=== PATIENT | female | born 1965 | race Caucasian/White ===

== ENCOUNTER 2017-11-10 19:57 | Emergency (ER) | payer OTHER, SELFPAY ==
[2017-11-10 19:59] VITALS: BP 122/74; PULSE 89; RESP 20; TEMP 36.6; O2SAT 100; BMI 29.1
--- NOTE | 2017-11-10 20:30 | RAD_ITS ---
STUDY: X-RAY - LEFT FOOT CLINICAL: Female, 51 years old. Pain TECHNIQUE: 3 view(s) of the foot. COMPARISON: None. FINDINGS: Normal talus, calcaneus, and tarsal bones. Normal visualized subtalar, talonavicular, calcaneocuboid, tarsal and tarsometatarsal articulations. Normal metatarsi. Normal metatarsophalangeal joint of the great toe. Normal tibial and fibular sesamoid bones. Normal interphalangeal joint of the great toe. Normal phalanges of the great toe. Normal second through fifth metatarsophalangeal joints. Normal interphalangeal joints and phalanges of the lesser toes. The soft tissue structures are unremarkable. RAD/Foot min 3 Views IMPRESSION: Normal x-ray examination of the foot. Electronically Signed: Haja Frazier DO at 20:53 EDT Tel [phone], Service support ,
--- NOTE | 2017-11-10 21:10 | ED.VISSUMM ---
- ER Visit Summary Date of Service: 11/10/17 Chief Complaint: Left ankle injury 4 weeks ago History of Present Illness: The patient is a 51 F who injured her left ankle 4 weeks ago. She presents because of pain with dorsiflexion and pain posterior lateral malleolus. She denies any recent injury. She was concerned because she had tingling pain in the proximal medial left thigh. After speaking with her mother she presented to the emergency department. She denies chest pain or shortness of breath. Denies difficulty breathing. She denies any GI symptoms. She denies any recurrent injury. She denies symptoms of claudication. She has no history of PE or DVT or any risk factors. Physical Examination: Vital signs are normal. HEENT is grossly unremarkable. Heart is regular. There is no respiratory distress. Examination of the left lower extremity was no swelling, discoloration, asymmetry, leg vein distention, palpable cords since on the diffusion deep venous system. She has minimal discomfort posterior lateral malleolus. There is no effusion of the ankle. There is no pain the patient base of the fifth metatarsal. There is no laxity with drawer testing. PT DP pulses are palpable. Test Results: Well score is -2. Three-view x-ray of the ankle was obtained per nurse protocol and interpreted by me as negative Emergency Department Course and Treatment: X-ray per nurse protocol Treatment Plan: Appropriate home-going instructions Disposition: Discharge to home Impression: Left ankle sprain, stable This note was generated with [employer] dictation software. It may contain incorrect words, spelling, and punctuation that were not noted in review of the chart prior to signing ED Disposition - Plan for ED Patient: Disposition: Home or Assisted Living Chief Complaint: Lower Extremity Injury Instructions: ED Sprain Ankle W X Ray Referrals: Merly Griffin PA-C [Primary Care Provider] - As Needed
[2017-11-10 21:14] VITALS: RESP 18
== END 2017-11-10 21:15 | disposition home or self-care (01) ==
PROVIDERS: Emergency Provider Emergency Medicine; Family Provider Family Medicine; PCP Family Medicine
DX: S93.402A Sprain of unspecified ligament of left ankle, initial encounter (principal); X58.XXXA Exposure to other specified factors, initial encounter; Y93.89 Activity, other specified; Y92.9 Unspecified place or not applicable; Y99.9 Unspecified external cause status; F32.9 Major depressive disorder, single episode, unspecified; Z72.0 Tobacco use
CPT/HCPCS: 73630; 99282

== ENCOUNTER → 2019-03-02 11:32 | Outpatient (CLI) | payer OTHER, SELFPAY ==
--- NOTE | 2019-03-02 11:33 | RAD_ITS ---
STUDY: X-RAY - RIGHT ELBOW REASON FOR EXAM: Female, 53 years old. Pain TECHNIQUE: 3 view(s) of the elbow. COMPARISON: None. FINDINGS: Normal visualized humerus, radius and ulna. Normal radiocapitellar and ulnotrochlear articulations. The soft tissue structures are unremarkable. RAD/Elbow min 3 Views IMPRESSION: Normal x-ray examination of the elbow. Electronically Signed: Kumar Ramirez MD at 20:15 EDT , Service support ,
== END ==
PROVIDERS: Family Provider Family Medicine; PCP Family Medicine; Referring Provider Physician Assistant; Visit Provider Physician Assistant
DX: M25.521 Pain in right elbow (principal)
CPT/HCPCS: 73080

== ENCOUNTER → 2019-03-25 08:47 | Outpatient (CLI) | payer OTHER, SELFPAY ==
[2019-03-02 13:29] VITALS: BMI 29.1
--- NOTE | 2019-03-25 08:49 | MRI_ITS ---
HISTORY:IMPINGEMENT RIGHT ELBOW, PAIN ULNAR SIDE, UNABLE TO FULLY EXTEND ELBOW,NKI MRI EXAMINATION OF THE Right ELBOW COMPARISON: Radiographs of the right elbow obtained on March 02, 2019 TECHNIQUE:Axial T1, T2, coronal T1 STIR proton-density fat-suppressed sagittal T2 and coronal in phase and out of phase proton density images # of images including paperwork:189 FINDINGS: BONES, OSTEOCHONDRAL SURFACES, AND ELBOW JOINT: No fracture,contusion, bone marrow edema, or osseous neoplasm. Ostochondral surfaces are unremarkable. No osteonecrosis or osteochondral defect. Small joint effusion . No loose body. TENDONS AND MUSCLES: The distal insertion of the biceps tendon is unremarkable without tendonopathy or rupture. The distal insertion of the brachialis tendon is unremarkable without tendonopathy or rupture. The distal insertion of the triceps tendon is unremarkable without tendonopathy or rupture. The origins of the flexor tendons of the forearm from the medial epicondyle are demonstrate slightly increased signal suggesting minimal intrasubstance tearing and tendinosis. The origins or the extensor tendons from the lateral humeral epicondyle are unremarkable without tenopathy or tear. LIGAMENTS: The radial collateral ligament is unremarkable. The ulnar collateral ligament is unremarkable. The lateral ulnar collateral ligament is unremarkable. NERVES: The ulnar nerve is appears mildly thickened. It also demonstrates slight increased signal on coronal image 17 series 6. These findings are suspect for neuritis. The courses of the median and radial nerves are unremarkable. IMPRESSION: Slightly thickened ulnar nerve was slight increased signal suspect for neuritis Minimal intrasubstance tear/tendinosis involving the origin of the common flexor tendons on the medial epicondyle. Small joint effusion at 2055 Reported and signed by: Kimberlyn Juan DO Electronically Signed: Kimberlyn Juan DO at 20:54 EDT Tel , Service support , MRI/Upper Ext Joint Only(Routine)
== END ==
PROVIDERS: Family Provider Family Medicine; PCP Family Medicine; Referring Provider Physician Assistant; Visit Provider Physician Assistant
DX: M25.821 Other specified joint disorders, right elbow (principal); M25.521 Pain in right elbow
CPT/HCPCS: 73221

== ENCOUNTER → 2019-07-04 15:12 | Outpatient (CLI) | payer OTHER, SELFPAY ==
[2019-04-20 10:01] VITALS: BMI 29.1
--- NOTE | 2019-07-04 | EGD_PTH ---
PATIENT: REBECCA WEISS LOC: [facility] U#:[id number] AGE/SX: 59/F ROOM: RE07/04/[address]: Dr. Grabiel Winchester MD : 1965 BED: DIS: SPEC #: [id number] RECD: 07/04/19 14:59 STATUS: TONNY RERoby #: [id number] TOD: 07/04/19 00:[address]: Grabiel Winchester DEPT: SURGICAL PATHOLOGY RECD BY: Norman Burnett ENTERED: 07/05/19 12:16 SP TYPE: EGD BIOPSY BRIAN DR: Merly Griffin PA-C Tissues: A - Gastric mucous membrane B - Esophageal mucous membrane Procedures: Special Stain Group II Surgery Specimen Level IV Alcian Blue/PAS (control) HEADER OPERATION: EGD, colonoscopy PRE-OP DIAGNOSIS: Z12.11, K21.9, Z80.0 TISSUE SUBMITTED: A. Antral biopsy H/H, B. Distal esophageal biopsy MICROSCOPIC DIAGNOSIS A. Antral biopsy: Moderate chronic active gastritis. See comment. B. Distal esophageal biopsy: Fragments of gastroesophageal mucosa with chronic inflammation. Intestinal metaplasia (goblet cell metaplasia) is not identified. See comment. FRANCISCO JAVIER:martin 07/06/19 COMMENT A. The results of immunohistochemistry for Helicobacter pylori will be reported separately ([id number]). B. Alcian blue/PAS stain with matched control is used in the evaluation of the specimen. MICROSCOPIC DESCRIPTION Slides are reviewed. GROSS DESCRIPTION A - Received in fixative is one container labeled with the patient's name and designated antrum biopsy. The specimen consists of one irregular fragment of light chua soft tissue that measures 0.3 x 0.3 x 0.1 cm. The specimen is totally submitted in one cassette. B - Received in fixative is one container labeled with the patient's name and designated distal esophageal biopsy. The specimen consists of multiple irregular fragments of light chua soft tissue that in aggregate measure 0.6 x 0.3 x 0.1 cm. The specimen is totally submitted in one cassette. / FRANCISCO JAVIER:martin 07/05/19 TC:2 CPT: 26346 x2, 52405
--- NOTE | 2019-07-05 | IMM_PTH ---
PATIENT: REBECCA WEISS LOC: [facility] U#:[id number] AGE/SX: 59/F ROOM: RE07/04/[address]: Dr. Grabiel Winchester MD : 1965 BED: DIS: SPEC #: [id number] RECD: 07/06/19 09:29 STATUS: TONNY REQ #: [id number] TOD: 07/05/19 00:[address]: Grabiel Winchester DEPT: IMMUNOHISTOCHEMISTRY RECD BY: Kaylen Peoples ENTERED: 07/06/19 09:29 SP TYPE: IMMUNO OTHR DR: Merly Griffin PA-C Tissues: A - Stomach, NOS Procedures: H Pylori (initial) PHYSICIAN & INSTITUTION [place] [address] SPECIMEN INFORMATION: Tissue Source: A - Antral biopsy Clinical Info: Z12.11, K21.9, Z80.0 Specimen Number: [id number] CPT code: 59702 METHODOLOGY: Deparaffinized sections of prefer/formalin-fixed tissue or PAP/DQ stained slides are incubated with monoclonal/polyclonal antibodies/oligonucleotide probes. Localization is made via biotin free immunoperoxidase method. Appropriate controls are performed and reacted as expected. Results on target cell population are indicated in the following table: RESULTS: ANTIBODY / CLONE RESULT Block A H Pylori (polyclonal) positive These tests were developed and their performance characteristics determined by [facility]. They may not have been cleared or approved by the U.S. Food and Drug Administration. The FDA has determined that such clearance or approval is not necessary. INTERPRETATION: A. Antral biopsy: Positive for Helicobacter pylori organisms. SJ:martin 07/06/19
== END ==
PROVIDERS: Family Provider Family Medicine; PCP Family Medicine; Referring Provider Surgery; Visit Provider Surgery
DX: Z12.11 Encounter for screening for malignant neoplasm of colon (principal); K21.9 Gastro-esophageal reflux disease without esophagitis; Z80.0 Family history of malignant neoplasm of digestive organs
CPT/HCPCS: 88305; 88313; 88342

== ENCOUNTER → 2020-01-15 10:26 | Outpatient (CLI) | payer OTHER, SELFPAY ==
[2019-12-28 12:42] VITALS: BMI 29.1
--- NOTE | 2020-01-15 10:43 | EKG12_ITS ---
Test Reason : PRE O Blood Pressure : / mmHG Vent. Rate : 066 BPM Atrial Rate : 066 BPM P-R Int : 152 ms QRS Dur : 094 ms QT Int : 400 ms P-R-T Axes : 020 042 047 degrees QTc Int : 419 ms Normal sinus rhythm Normal ECG Confirmed by FADI MYLES MD ([id number]), writer editor BALJIT SOLORZANO ([id number]) on 01/17/2020 12:44:53 PM Referred By: Brad Ye Confirmed By:FADI MYLES MD
[2020-01-15 11:27] LABS: Hematocrit 40.3 % (37-47); Mean Corp Hgb Conc 32.3 g/dL (32-36); Mean Corpuscular Hgb 31.3 pg (27.0-32.0); Mean Corpuscular Volume 96.9 fL (81-99); Mean Platelet Vol. 10.2 fl (6.2-12.0); Platelet Count 332 K/mm3 (150-450); RBC Distribution Width CV 12.6 % (11.6-14.6); RBC Distribution Width SD 45.1 fl (35.1-43.9); Red Blood Count 4.16 M/mm3 (4.2-5.4)
[2020-01-15 11:44] LABS: ALB/GLOB Ratio 1.1 RATIO (0.9-2.4); AST(SGOT) 14 U/L (15-37); Alanine Aminotransfer ALT/SGPT 20 U/L (13-56); Alkaline Phosphatase 78 U/L (45-117); Anion Gap 3 (5-15); BUN 10 mg/dL (7-18); BUN/Creat Ratio 12.5 RATIO (10-20); Calcium,Total 9.1 mg/dL (8.5-10.1); Chloride 106 mmol/L (98-107); EST Glomerular Filtration Rate 79 mL/min (>60); Est Glom Filt Rate - Afr Amer 96 mL/min (>60); Globulin 3.7 g/dL (2.2-4.2); Glucose 92 mg/dL (74-106); Potassium 3.9 mmol/L (3.5-5.1); Protein, Total 7.7 g/dL (6.4-8.2); Sodium Level 138 mmol/L (136-145)
== END ==
PROVIDERS: PCP Family Medicine; Referring Provider Otolaryngology; Visit Provider Otolaryngology
DX: Z01.810 Encounter for preprocedural cardiovascular examination (principal); Z01.812 Encounter for preprocedural laboratory examination
CPT/HCPCS: 36415; 80053; 85027; 93005

== ENCOUNTER → 2020-01-18 11:42 | Outpatient (CLI) | payer OTHER, SELFPAY ==
[2019-09-12 11:06] VITALS: BMI 29.1
[2019-12-28 12:42] VITALS: BMI 29.1
== END ==
PROVIDERS: PCP Family Medicine; Visit Provider Otolaryngology
DX: Z11.59 Encounter for screening for other viral diseases (principal)
CPT/HCPCS: 87635; G2023; U0003

== ENCOUNTER 2020-02-21 10:53 | Day surgery (SDC) | payer OTHER, SELFPAY ==
--- NOTE | 2019-12-28 01:00 | HP_ITS ---
I have re-examined the patient. There are no clinical changes since date of exam. We discussed the current risk associated COVID-19. While it is understood that there is a community spread of COVID 19 the risk of elias COVID-19 while at [facility] is very low, however, the risk cannot be completely mitigated because of the community spread of the disease. We discussed in detail the risk of exposure to and or potential harm posed by the COVID-19 virus with having a surgery/procedure at this time versus the risk of delaying the surgery/procedure. Is not possible to know either the risk of delaying the surgery procedure or chance of getting an infection with perfect accuracy, but a joint decision was made to proceed at this time with a schedule surgery/procedure as indicated on the consent form. Patient was notified that we will need to comply with any screening or testing [facility] wishes to perform or that surgery may be delayed for any positive results. Intake Vital Signs 12/28/19 BMI 29.1 Intake Visit Reasons: elbow pain Is patient in pain?: Yes Allergies levofloxacin [From Levaquin] Adverse Reaction (Verified 12/28/19 12:42) Other sertraline [From Zoloft] Adverse Reaction (Verified 12/28/19 12:42) Other Sulfa (Sulfonamide Antibiotics) Adverse Reaction (Verified 12/28/19 12:42) Other [facility] Social History (Updated 12/28/19 @ 15:[address] Aleksandra Almonte DO) Smoking Status: Current every day smoker HPI elbow pain: Surgical H&P: Yes Details: Parts of this documentation were recorded by a scribe, this documentation accurately reflects the service provided and the decisions made by me, Dr. Aleksandra Almonte DO 12/28/19 1827. REBECCA WEISS is a 54 year old F here today for continued right elbow pain. Patient states that she continues to have pain over her medial elbow. Her pain increases with most activities, and when she is sleeping at night with her elbow flexed. Patient had an injection on 09/12/19 which was helpful for about 3 months. She has weakness and has to limit the weight she is carrying. Patient denies dropping items. She notes that she has shoulder pain and believes it might be compensation from her elbow. She denies any numbness or tingling unless she is resting her arm on something. ROS Musc Reports joint pain, Denies numbness, Denies tingling Skin/Breast Reports system reviewed and no additional complaints, except as docu Neuro Yes system reviewed and no additional complaints, except as docu, No numbness, No tingling Ortho Exam Right Elbow Skin/Wound: Yes CDI, No eccymosis, No erythema Test: Yes TTP Medial Epicondyle ELBOW: ttp ulnar nerve. palpable snapping over posterior elbow. Assessment & Plan Problems 1. Medial epicondylitis, right elbow M77.01 2. 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 Spoke with her about the surgery procedure and recovery. She will be in a sling for 2 weeks. Spoke with her about the benefits of cutting back smoking, she might be a slower healer due to the nicotine. Reviewed the pre-operative plans with the patient. Risks and benefits of the procedure were fully explained, including but not limited to infection, neurovascular injury, continued pain, arthritis, stiffness, need for further surgery, re-injury, DVT, PE, general risks of anesthesia, and loss of limb or life. The patient understands all the risks and does wish to proceed with written consent. Spoke with the patient about her surgery date, she has nasal surgery on 01/23/20, we will need to schedule around her nasal surgery. Follow up for 2 week post op or sooner if pain, swelling, numbness or associated symptoms, or concerns develop. All questions answered. Patient in agreement of plan. 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
[2019-12-28 12:42] VITALS: BMI 29.1
[2020-02-08 09:18] VITALS: BMI 29.1
[2020-02-21] VITALS (7 sets, daily range): BP systolic 103–133; BP diastolic 71–83; PULSE 69–86; RESP 15–16; TEMP 35.9–36.1; O2SAT 95–100; BMI 29.5
[2020-02-21] MEDS: Lactated Ringers 1,000 ML 100 ML IV (11:32)
--- NOTE | 2020-02-21 12:35 | TESH_PTH ---
PATIENT: REBECCA WEISS LOC: [facility] U#:[id number] AGE/SX: 54/F ROOM: RE02/21/[address]: Dr. Aleksandra Almonte DO : 1965 BED: DIS: 02/21/2020 SPEC #: [id number] RECD: 02/22/20 09:48 STATUS: TONNY SANDY #: [id number] TOD: 02/21/20 12:[address]: Aleksandra Almonte DEPT: SURGICAL PATHOLOGY RECD BY: Norman Burnett ENTERED: 02/22/20 09:49 SP TYPE: TENDON OTHR DR: Merly Griffin PA-C Tissues: Tendon and tendon sheath, NOS Procedures: Surgery Specimen Level III HEADER OPERATION: Medial epicondyle debridement, flexor tendon debridement PRE-OP DIAGNOSIS: Medial epicondylitis right elbow; Olecranon impingement syndrome of right elbow TISSUE SUBMITTED: Tendon right arm MICROSCOPIC DIAGNOSIS Right arm tendon, excision: Degenerative and reparative change. AM:martin 02/23/20 MICROSCOPIC DESCRIPTION Slides are reviewed. GROSS DESCRIPTION Received in fixative is one container labeled with the patient's name and designated tendon, right arm. The specimen consists of multiple irregular fragments of white-light yellow soft tissue that in aggregate measure 2 x 1 x 0.2 cm. The specimen is totally submitted in one cassette. / AM:martin 02/22/20 TC:5 CPT: 94812
--- NOTE | 2020-02-21 12:43 | OP.PCM_ITS ---
Report of Operation Date of Procedure: 02/21/20 Pre-Operative Diagnosis: right medial epicondylitis, ulnar neuritis Post-Operative Diagnosis: same Surgery/Procedure Performed:: right ulnar nerve release and transposition with fcr fascial sleeve, flexor tendon excision, medial epicondyle k wire drilling with .45 kwires performance management consultant: Mauri Guerrero Type of Anesthesia:: General Anesthesiologist: Sg Ledezma Specimen's removed: flexor tendon Estimated Blood Loss (mL): min Fluids Replaced: 800cc lr Description of Procedure: Preop note Patient is a 54-year-old female with constant medial sided pain and pain during extension. Patient also has ulnar nerve symptoms. Patient had an MRI that minerva ws a medial epicondylitis. Risk benefits alternatives were discussed the patient. Risk include but not limited to blood loss blood clot, infection, neurovascular, failure procedure, loss of life includes loss of limb. Patient says she had acute pain with extension however she was not sure if there was a mechanical block to the fact that she has such pain along her medial epicondyle. We discussed that we will check her Intra-Op if she could extend fully without a block we would not assess her lateral septum we were just more all of her pain is today and all of her pain today was on the medial epicondyle on physical exam and she also has some ulnar nerve neuritis symptoms on exam as well. Proceed with right ulnar nerve release possible transposition medial epicondyle debridement and/or repair Operative note Patient seen and examined preoperative holding area. Right arm was marked. Patient brought to the operating room placed supine on the operating table. Signed, anesthesia, antibiotics were administered. Right arm was prepped and draped in usual sterile technique with a tourniquet around her arm after patient's arm was prepped and draped in sterile and sterile technique. We then marked out our incision for medial debridement between the medial epicondyle and the olecranon. We then exsanguinated using an Esmarch the right upper extremity entire tourniquet raised her pressure 250 torr. We then used a 15 blade to cut through the skin dissecting down to the skin 3 cm proximal and distal to the interval between the medial epicondyle at the elbow. We dissected down tenotomies the level of the ulnar nerve. Ulnar nerve was then released in its entirety both and released all 7 compression sites proximally and distally. In standard technique. We then were able to use Vesseloops and to ensure that we had released the nerve in its entirety which we did have protecting all neurovascular structures at all times. We then flexed and extended the arm and the nerve did sublux out of the groove with flexion we decided to do and transposed the nerve. We created an FCR fascial sling for the transposition. We then after creating her FCR fascia sling we then were able to find the common flexor tendon for debridement. We excised the next the entire disease tendon and sent it to pathology for further evaluation. We were down to the medial epicondyle we then scratch test of the medial epicondyle and drilled 3.45 K wire drill holes into the medial epicondyle and had bleeding good bleeding. We then irrigated the incision with copious muscle sterile saline. We closed the muscle layer back with 3-0 Vicryl. We then created our sling with a transposing the nerve and creating and then sewing the fascial FCR fascia to the subcutaneous fat. We then flex and extend in the armed ensure that no kinking of the nerve which there was none. We then irrigated the cup with copious muscle sterile saline. We closed the skin skin subcu regularly with 3-0 Vicryl and a running 4-0 Monocryl. Sterile dressings were applied splint at 90 degrees was applied. Patient taught procedure well no complications child recovery room stable condition. Postoperative note Nonweightbearing right upper extremity Follow-up in 2 weeks Call with increased pain numbness tingling or other issues arise This note was generated with [employer] dictation software. It may contain incorrect words, spelling, and punctuation that were not noted in checking the note before signing.
--- NOTE | 2020-02-21 12:43 | DCINST_ITS ---
Discharge Diet: No Restrictions - Leave dressing intact, follow-up in 2 weeks, call with increased pain numbness tingling or further issues arise Discharge Activity: May Not Drive May shower in (days): 1 Ice area for (Minutes): 20 - Every hour while awake. Weight Bearing Status: Weight bearing as tolerated Keep extremity elevated above heart level: Operative Extremity Call your doctor if your incision/area has: Continuous Slow Oozing, Sudden Increased Bleeding, Increased Pain/ Swelling, Increased Redness, Foul Smelling Discharge Call your doctor if you observe: Fever of 101 or Higher, Coldness, Increased Pain, Numbness or Tingling, Change in Color, Calf discomfort Allergies/Adverse Reactions: Allergies clindamycin Allergy (Mild, Verified 02/21/20 11:11) rash itraconazole [From Sporanox] Allergy (Verified 02/21/20 11:11) Rash levofloxacin [From Levaquin] Adverse Reaction (Verified 02/21/20 11:11) Other sertraline [From Zoloft] Adverse Reaction (Verified 02/21/20 11:11) Other Sulfa (Sulfonamide Antibiotics) Adverse Reaction (Verified 02/21/20 11:11) Other Medications to take at Discharge Cetirizine HCl [Zyrtec] 1 tab PO DAILY PRN PRN 11/10/17 Pramipexole Di-HCl [Mirapex] 1.5 tab PO DAILY 11/10/17 omeprazole 40 mg capsule,delayed release 40 mg PO QHS 09/12/19 triamcinolone acetonide 0.1 % topical cream 1 applic TOPICAL DAILY PRN PRN 02/08/20 Guaifenesin/Pseudoephedrne HCl [Mucinex D ER 600-60 mg Tablet] 1 ea PO BID PRN PRN 02/09/20 Primary Care Physician: Merly Griffin PA-C [Primary Care Provider] - Test Results: Test results from this visit will be discussed in further detail at your follow- up appointment, if applicable. Please Follow Up With: Aleksandra Almonte, DO - [phone]
[2020-02-21] MEDS: Cefazolin 2 GM in 0.9% Normal Saline 100 ML IV (13:32)
[2020-02-21] MEDS: Mupirocin Ointment 22gm Tube 1 APPLIC (15:00)
== END 2020-02-21 17:36 | disposition home or self-care (01) ==
LOC: SDC 10:54 → AC 10:55
PROVIDERS: Anesthesiology; PCP Family Medicine; Referring Provider Orthopaedic Surgery; Visit Provider Orthopaedic Surgery
PROC: (CPT 24357; principal; 2020-02-21 12:20)
DX: M77.01 Medial epicondylitis, right elbow (principal); M25.821 Other specified joint disorders, right elbow; F17.200 Nicotine dependence, unspecified, uncomplicated; Z88.1 Allergy status to other antibiotic agents; Z88.2 Allergy status to sulfonamides
CPT/HCPCS: 01710; 64718; 87635; 88304; 94799; J7120; J2405; U0003

== ENCOUNTER → 2022-02-03 | Outpatient (CLI) | payer OTHER, SELFPAY ==
--- NOTE | 2022-02-03 | LES_PTH ---
PATIENT: REBECCA WEISS LOC: [facility] U#:[id number] AGE/SX: 56/F ROOM: RE02/03/[address]: Dr. Kumar Finley MD : 1965 BED: DIS: 02/03/2022 SPEC #: [id number] RECD: 02/03/22 10:59 STATUS: TONNY SANDY #: [id number] TOD: 02/03/22 00:[address]: Kumar Finley DEPT: SURGICAL PATHOLOGY RECD BY: Johnny Lopez ENTERED: 02/03/22 10:59 SP TYPE: Lesion OTHR DR: Merly Griffin PA-C Tissues: Skin of eyelid, NOS Procedures: Surgery Specimen Level IV HEADER OPERATION: Right lower lid lesion PRE-OP DIAGNOSIS: Increased side with pigment TISSUE SUBMITTED: Right lower lid lesion MICROSCOPIC DIAGNOSIS Right lower eyelid lesion, biopsy: Fragments of benign fibroepithelial polyp. AM:martin 02/04/2022 MICROSCOPIC DESCRIPTION Slides are reviewed. GROSS DESCRIPTION Received in fixative is one container labeled with the patient's name and designated right lower lid lesion. The specimen consists of an irregular fragment of chua tissue measuring 0.1 x <0.1 x <0.1 cm. The specimen is totally submitted in one cassette. / AM:martin 02/03/2022 TC:5 CPT: 31967
== END | disposition home or self-care (01) ==
LOC: LABSPEC 10:36
PROVIDERS: PCP Family Medicine; Referring Provider Ophthalmology; Visit Provider Ophthalmology
DX: H02.9 Unspecified disorder of eyelid (principal)
CPT/HCPCS: 88305